=== PATIENT | female | born 2000 | race Caucasian/White ===

== ENCOUNTER 2024-06-28 13:17 | Emergency (ER) | payer SELFPAY ==
[2024-06-28 13:17] VITALS: BMI 26.3
[2024-06-28 13:19] VITALS: BP 121/82
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
[2024-06-28] MEDS: MOTRIN 400 MG PO (14:10)
[2024-06-28] MEDS: ADACEL 0.5 ML IM (14:11)
== END 2024-06-28 15:24 | disposition home or self-care (01) ==
LOC: EMR 13:17
PROVIDERS: EMERGENCY PHYSICIAN Emergency Medicine
DX: S01.511A Laceration without foreign body of lip, initial encounter (principal); W22.8XXA Striking against or struck by other objects, initial encounter; Y99.2 Volunteer activity; Z23 Encounter for immunization
CPT/HCPCS: 12014; 90471; 99283; 90715